=== PATIENT | male | born 1970 | race Caucasian/White ===

== ENCOUNTER 2025-01-30 21:42 | Emergency (ER) | payer SELFPAY ==
[~2025-01-30] VITALS: Ht 172.7 cm; Wt 77.3 kg
[2025-01-30 22:20] VITALS: BP 144/96; PULSE 118; RESP 22; O2SAT 98
--- NOTE | 2025-01-30 22:33 | Physician Documentation ---
History of Present Illness ~ Chief Complaint: Anxiety Stated Complaint: CHEST PAIN Time Seen by MD: 22:27 HPI Patient is seen today with complaints of significant anxiety. Patient states he just use methamphetamines intravenously a few hours ago. Patient states he has been drinking alcohol heavily over the last four or five days. Patient denies any chest pain or shortness of breath or abdominal pain or nausea, vomiting, diarrhea. Patient states he is a little thirsty. He has no other concern or complaint at this time. Patient denies any significant alcohol use prior to the last four or five days. Review of Systems Constitutional: Denies: chills, fever, weakness Eyes: Denies: pain, blurred vision ENT: Denies: ear pain, nose pain, throat pain, mouth pain Respiratory: Denies: cough, shortness of breath Cardiovascular: Denies: chest pain, palpitations Gastrointestinal: Denies: abdominal pain, nausea, vomiting Genitourinary: Denies: burning, dysuria Male Genitalia: Denies: penile discharge, testicular pain Neurological: Denies: headache, dizziness Musculoskeletal: Denies: pain, swelling Integumentary: Denies: rash, lesions Allergic/Immunologic: Denies: hives, itching Hematologic/Lymphatic: Denies: no symptoms reported Psychiatric: Denies: depression, anxiety Physical Exam Vital Signs: Temperature: 98.0, Source: Oral, Heart Rate: 118, Respiratory Rate: 22, BP: 144/96, Pulse Oximetry: 98, Weight: 77.270 Oxygen Flow Rate: 0 Physical Exam General: Awake and Alert, no acute distress. HEENT: Conjunctiva pink, Sclera clear, Mucus Membranes moist. Neck: Supple without masses and tenderness. Resp: Unlabored. Lungs clear to auscultation bilaterally. Heart: Mildly tachycardic Rate and rhythm, normal S1 and S2 without murmur, rub or gallop. Abdomen: Soft and non tender no organomegaly Extremities: No cyanosis,clubbing or edema. Skin: Warm and Dry. Progress Results/Orders Results/Orders Vital Signs 01/30/25 22:20 Temp 98.0 Pulse 118 Resp 22 B/P (MAP) 144/96 Pulse Ox 98 O2 Flow Rate 0 Medical Decision Making Findings Patient is seen today with complaints of significant anxiety. Patient states he just use methamphetamines intravenously a few hours ago. Patient states he has been drinking alcohol heavily over the last four or five days. Patient denies any chest pain or shortness of breath or abdominal pain or nausea, vomiting, diarrhea. Patient states he is a little thirsty. He has no other concern or complaint at this time. Patient is medically cleared for entrance into rehab facility.Patient was given some fluids by mouth and patient will follow up with primary care in 2-5 days if no better as needed sooner. I strongly recommended patient go to rehab for alcohol and methamphetamine use. The patient voiced understanding. Return to ED with any worsening, concerning or changing symptoms. Departure Disposition: HOME / SELF CARE / HOMELESS Impression: Primary Impression: Anxiety Additional Impressions: Methamphetamine abuse Alcohol abuse Condition: Stable Discharge Instructions: Panic Attack Additional Instructions: Patient is medically cleared for entrance into rehab facility.Patient was given some fluids by mouth and patient will follow up with primary care in 2-5 days if no better as needed sooner. I strongly recommended patient go to rehab for alcohol and methamphetamine use. The patient voiced understanding. Return to ED with any worsening, concerning or changing symptoms. Referrals: NO PRIMARY CARE PROVIDER (PCP) Signature Scribe Signature: No scribe Attestation: No scribe CLAUDIA CUELLAR PAC Jan 30, 2025 22:33
[2025-01-30 23:01] VITALS: TEMP 98
[2025-01-31] MEDS ORDERED: CHLO25CA10 PO (09:57)
== END 2025-01-30 23:03 | disposition home or self-care (01) ==
LOC: ER 21:44
DX: F41.9 Anxiety disorder, unspecified (principal); F10.10 Alcohol abuse, uncomplicated; F15.10 Other stimulant abuse, uncomplicated
CPT/HCPCS: 99283

== ENCOUNTER 2025-01-31 06:10 | Emergency (ER) | payer MEDICAID ==
[~2025-01-31] VITALS: Ht 152.4 cm; Wt 77.3 kg
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
--- NOTE | 2025-01-31 07:01 | ELECTROCARDIOGRAPH REPORT ---
[facility] Test Date: 2025-01-31 Test Time: 06:59:52 Pat Name: DIA BLISS Department: [facility]-ER Patient ID: [id number] Room: Gender: M [employer]: : [id number] Requested By: RANDY MARIA Order Number: [id number] Reading MD: Dr. ANDERSON Hart Measurements Intervals [place] Rate: 88 P: 84 HI: 145 QRS: 103 QRSD: 84 T: 72 QT: 360 QTc: 436 Interpretive Statements Sinus rhythm Probable left atrial enlargement Right axis deviation Electronically Signed On 01-31-2025 17:58:[address] ANDERSON Hart Please click the below link to view image of tracing.
[2025-01-31 07:52] LABS: MEAN PLATELET VOLUME 7.2 FL (7.4-10.4); RED CELL DISTRIBUTION WIDTH 16.2 % (11.5-14.5)
[2025-01-31 08:15] LABS: APTT 29 SECONDS (22-32)
[2025-01-31 08:18] LABS: CREATININE 0.85 MG/DL (0.60-1.10); INR 0.9 INR; TOTAL CARBON DIOXIDE 22.3 MMOL/L (24-32); eCRCL 69 ML/MIN; eGFR > 90 ML/MIN
[2025-01-31 08:21] LABS: ETHANOL 20 MG/DL (<10)
[2025-01-31 08:29] VITALS: TEMP 98.1
[2025-01-31 08:40] LABS: LEUKOCYTE ESTERASE ,URINE NEGATIVE (Neg); NITRITES, URINE NEGATIVE (Neg); OCCULT BLOOD,URINE NEGATIVE (Neg)
[2025-01-31 08:47] LABS: UA COLLECTION TYPE CLN CATCH MIDSTREAM
[2025-01-31 08:48] LABS: URINE AMPHETAMINE SCREEN NEGATIVE (Neg); URINE BARBITUATE SCREEN NEGATIVE (Neg); URINE BENZODIAZEPINES SCREEN NEGATIVE (Neg); URINE CANNABINOID SCREEN NEGATIVE (Neg); URINE COCAINE SCREEN NEGATIVE (Neg); URINE METHADONE SCREEN NEGATIVE (Neg); URINE OPIATE SCREEN NEGATIVE (Neg); URINE PHENCYCLIDINE SCREEN NEGATIVE (Neg)
[2025-01-31] MEDS ORDERED: CHLO25CA10 PO (09:57)
[2025-01-31 10:19] VITALS: BP 182/118; PULSE 101; RESP 19; O2SAT 98
== END 2025-01-31 10:21 | disposition home or self-care (01) ==
LOC: ER 06:11
DX: F10.239 Alcohol dependence with withdrawal, unspecified (principal); R06.02 Shortness of breath; R07.89 Other chest pain; R11.0 Nausea; F41.9 Anxiety disorder, unspecified; F15.10 Other stimulant abuse, uncomplicated; Z59.00 Homelessness unspecified; Z79.899 Other long term (current) drug therapy; Y90.9 Presence of alcohol in blood, level not specified
CPT/HCPCS: 36415; 80053; 80305; 80320; 81003; 83690; 83735; 84439; 84443; 84484; 85025; 85610; 85651; 85730; 86140; 93005; 99284